=== PATIENT | female | born 1990 | race Caucasian/White ===

== ENCOUNTER 2017-04-23 01:53 | Emergency (ER) | payer BC ==
[~2017-04-23] VITALS: Ht 152.4 cm; Wt 70.8 kg
[2017-04-23 05:45] VITALS: BP 134/89
== END 2017-04-23 09:09 | disposition home or self-care (01) ==
LOC: ED 01:53
DX: L02.215 Cutaneous abscess of perineum (principal)
CPT/HCPCS: J2001